=== PATIENT | female | born 1975 | race Caucasian/White ===

== ENCOUNTER → 2024-03-29 14:02 | Outpatient (REF) | payer BC, SELFPAY | LOC: RAD 14:02 | PROVIDERS: ATTENDING PHYSICIAN Family Medicine | DX: N20.0 Calculus of kidney (principal) | CPT/HCPCS: 76770 ==

== ENCOUNTER 2024-04-04 10:40 | Emergency (ER) | payer BC, SELFPAY ==
[2024-04-04 10:44] VITALS: BP 135/66
[2024-04-04 11:16] LABS: % Basophils 0.6 % (0-2); % Eosinophils 0.2 % (0-6); % Immature Granulocytes 0.1 % (0-0.5); % Lymphocytes 12.3 % (20.5-51.1); % Monocytes 5.2 % (1.7-9.3); % Neutrophils 81.6 % (42.2-75.2); Absolute Basophils 0.1 10^3/uL (0-0.2); Absolute Lymphocytes 1.1 10^3/uL (1.2-3.4); Absolute Monocytes 0.5 10^3/uL (0.1-0.6); Absolute Neutrophils 7.1 10^3/uL (1.4-6.5); Hematocrit 39.5 % (37.0-47.0); Hemoglobin 13.7 g/dL (12.0-16.0); Mean Corp Hgb Conc. 34.7 g/dL (33.0-37.0); Mean Corpuscular Volume 92.3 fL (81.0-99.0); Mean Platelet Volume 10.5 fL (7.4-10.4); Nucleated Red Blood Cells % 0 %; Platelet Count 252 10^3/uL (130-400); Red Blood Cell Count 4.28 10^6/uL (4.20-5.40); Red Cell Dist. Width 12.9 % (11.5-14.5); White Blood Cell Count 8.7 10^3/uL (4.8-10.8)
[2024-04-04 11:28] LABS: INR 1.08
[2024-04-04 11:29] LABS: APTT 31.3 Sec (23.4-35.0)
[2024-04-04 11:31] LABS: HCG, Serum Qualitative Screen Negative
[2024-04-04 11:33] LABS: ALT (SGPT) 19 U/L (0-35); AST (SGOT) 31 U/L (14-36); Albumin 4.6 g/dl (3.5-5.0); Alkaline Phosphatase 56 U/L (38-126); Blood Urea Nitrogen 18 mg/dl (7-17); Calcium 9.6 mg/dl (8.4-10.2); Carbon Dioxide 23 mmol/L (22-30); Chloride 102 mmol/L (98-107); Glucose 93 mg/dl (70-99); Potassium 4.5 mmol/L (3.5-5.1); Sodium 137 mmol/L (135-145); Total Bilirubin 0.9 mg/dl (0.2-1.3); Total Protein 6.7 g/dl (6.3-8.2); eGFR > 60.00
[2024-04-04] MEDS: OMNIPAQUE 50 ML PO (12:18)
[2024-04-04] MEDS: NSS 1000 IV (12:18)
[2024-04-04 12:22] VITALS: BMI 20.8
[2024-04-04 12:52] LABS: Lactic Acid 0.9 mmol/L (0.7-2.0)
[2024-04-04 12:55] LABS: Lipase 189 U/L (23-300)
[2024-04-04 13:09] LABS: Urine Albumin Negative (Neg - Trace); Urine Bilirubin Negative (Negative); Urine Character Clear (Clear); Urine Color Yellow; Urine Glucose Negative (Negative); Urine Ketone 1+ (Negative); Urine Leukocyte Negative (Negative); Urine Nitrite Negative (Negative); Urine Occult Blood Negative (Negative); Urine Specific Gravity 1.005 (<1.030); Urine Urobilinogen Negative (Neg - 1+)
--- NOTE | 2024-04-04 13:30 | ED.GENMED ---
History of Present Illness
General
Chief Complaint: Rectal Bleeding
Source: patient
Exam Limitations: none
Time Seen by Provider: 04/04/24 11:36
Nursing documentation reviewed up to this point in time: agreed with
History of Present Illness
History of Present Illness:
48 y/o F with h/o colon polyps removed preiovusly on colonoscopys
renal stones no passing stones
here with paniless rectal bleeding x 1 episode today; no blood in toilet bowl
pt had brown stool mixed with blood, the stool was not diarrhea, but soft
she has never had rectal bleeding before
no rectal pain
no AC
no bleeding from anywerh else
she has also had 2 weeks of mid right sided back pain
atraumatic
no cough
worse with changing position
she has been concerned she has malginancy and now is very fearful
she had outpatient US of kidneys showing infrarenal stones but no hydro
Past History
Past History
ED Past Medical History: Other (Hiatal Hernia)
ED Past Surgical History: Other (Lump in breast)
Social History
Living: with family
Phy Exam
Physical Exam
Physical Exam:
GENERAL: Alert , in no apparent distress
EYE: pupils equal and reactive
NECK: Supple
ENT: o/p clr, mmm.
CARDIAC: Regular rate and rhythm .
LUNGS: Clear breath sounds bilaterally, no acute respiratory distress, no wheezes/rales/rhonchi
back: nontender, no mdilne tenderness; no pleuritic pain
ABDOMEN: Soft, flat, nondistended, nontender, no r/g, no cvat, normal bowel sounds
NEUROLOGICAL: Alert and oriented, no focal neuro deficits
SKIN: Warm and dry, skin intact.
MUSCULOSKELETAL: No edema, well perfused.
PSYCH: Normal and appropriate interaction.
Course
Orders/Labs/Results
Orders:
Orders
04/04/24 10:50
Test Result ONCE
04/04/24 11:01
Type+Screen Urgent
Complete Blood Count/With Diff Urgent
Comprehensive Metabolic Panel Urgent
HCG, Serum Qualitative Screen Urgent
Lipase Urgent
Comment: ADD ON
PT/INR [Prothrombin Time] Urgent
PTT Urgent
04/04/24 12:10
CT Abd/pel W Iv And Oral Contr Urgent
Comment:
Reason For Exam: BACK PAIN, RECTAL BLEEDING, DIARRHEA
0.9% Sodium Chloride 1000 ml [Nss] 1,000 ml IV BOLUS
Diphenhydramine [Benadryl] 50 mg IV NOW STA
Hydrocortisone Sod Succinate [Solu-Cortef] 200 mg IV NOW STA
Iohexol [Omnipaque] See Protocol PO NOW STA
04/04/24 12:11
Add On- LAB Urgent
Tests Added?: LIPASE
CR Chest - 2 Views Urgent
Comment:
Reason For Exam: UPPER BACK PAIN
04/04/24 12:22
Lactic Acid Urgent
04/04/24 12:55
Urinalysis Reflex To Culture Urgent
Date Specimen was Collected: 04/04/24
Time Specimen was Collected: 12:46
Abnormal Lab Results
04/04/24 04/04/24
11:01 12:55
MCH 32.0 H pg
(27.0-31.0)
MPV 10.5 H fL
(7.4-10.4)
Absolute Neuts (auto) 7.1 H 10^3/uL
(1.4-6.5)
Absolute Lymphs (auto) 1.1 L 10^3/uL
(1.2-3.4)
Neutrophils % 81.6 H %
(42.2-75.2)
Lymphocytes % 12.3 L %
(20.5-51.1)
BUN 18 H mg/dl
(7-17)
Urine Ketones 1+ A
(Negative)
04/04/24 11:01
04/04/24 11:01
Vital Signs
Initial and Last Documented VS:
Initial Vital Signs
Temp Pulse Resp BP Pulse Ox
97.8 F 66 18 135/66 100
04/04/24 10:44 04/04/24 10:44 04/04/24 10:44 04/04/24 10:44 04/04/24 10:44
Last Documented Vital Signs
Temp Pulse Resp BP Pulse Ox
97.8 F 59 13 93/56 100
04/04/24 10:44 04/04/24 12:32 04/04/24 12:32 04/04/24 15:51 04/04/24 10:44
MDM/Problems Addressed
MDM/Problems Addressed:
48 y/o F with h/o colon polyps on previous colonoscopy 2018, due for another
here with painless rectal bleeding x 1 episode today mixed with brown stool; not anticoagulated; no bleeding actively; had w/u here with labs, ctap, which only showed mild dehydration, hg stable.
she has been havin ga MSK-sounding right sided mid back pain for 2 weeks; but she is concerned about malignancy
hasn't had colonoscopy > 5 years
pt has no cough/sob, no pleuritic pain
pt has not had any episodes here
she was hydrated with IVF
she has no pain
i d/w dr. arevalo from [facility] the [facility] who got her an appt on 04/[address] arreaga
pt will try metamucil and suppositories in case of hemorrhoids
*Critical Care Note
Total Time (30-74mins, 75-104mins- exclusive of procedures): Not Applicable
ED Attending Note
-
Portions of this chart may have been created with voice recognition software.� Occasional wrong word or��sound alike� substitutions may have occurred due to the inherent limitations of voice recognition software.
Discharge Plan
Departure
Patient Disposition: Home (Routine Discharge)
Date of Disposition: 04/04/24
Time of Disposition: 15:22
Patient with high blood pressure during this ER visit?: No
Condition: Fair
Covid-19: Not Applicable
Discharge Problem:
Rectal bleed
Instructions: Bloody Stools, Adult (DC)
Prescriptions:
No Action
No Current Medications
0
Referrals:
Dixie Arevalo MD [Active] - Follow up in 1 week
Liliana Cain DO [Family Provider] -
Activity Restrictions/Additional Instructions:
WE ARE NOT SURE THE CAUSE OF YOUR BLOODY STOOL
YOU SHOULD TRY TO AVOID ROUPHAGE IN YOUR DIET
TRY MORE BLAND FOOD FOR A FEW DAYS
USE METAMUCIL ONCE A DAY TO KEEP STOOLS SOFT
USE A PREPARATION H SUPPOSITORY ONCE A DAY FOR THE NEXT 3 DAYS TO SEE IF THIS HELPS
RETURN FOR: RECURRENT EPISSODES, LARGER BLEEDING, BLEEDING SPOTANEOUSLY OR WITH CLOTS, SEVERE PAIN OR ANY CONCERNS,
OTHERWISE FOLLOW UP WITH GI.[facility]
Interventions
Interventions:
*Risk Screen - Suicide Last Done: 04/04/24 12:23
*General Assessment Last Done: 04/04/24 12:23
*Neglect/Abuse Screening Last Done: 04/04/24 12:23
ED- Fall Risk Assessment Last Done: 04/04/24 11:34
*ED COVID-19 Vaccine History Last Done: 04/04/24 12:23
*Nursing Disposition Last Done: 04/04/24 15:55
XB-Wgekgl-Mnlhugmfed Assessment Last Done: 04/04/24 11:34
ED- Cardiac Assessment Last Done: 04/04/24 12:34
ED- Pulmonary Assessment Last Done: 04/04/24 11:34
Discharge Date and Time
Discharge Date/Time: 04/04/24 16:05
Print Language: URDU
[2024-04-04] MEDS: SOLU-CORTEF 200 MG IV (13:36)
[2024-04-04] MEDS: BENADRYL 50 MG IV (13:37)
[2024-04-04 15:51] VITALS: BP 93/56
== END 2024-04-04 16:05 | disposition home or self-care (01) ==
LOC: EMR 10:40
PROVIDERS: Physician Assistant; Student in an Organized Health Care Education/Training Program; EMERGENCY PHYSICIAN Student in an Organized Health Care Education/Training Program; FAMILY PHYSICIAN Family Medicine
DX: K62.5 Hemorrhage of anus and rectum (principal); E86.0 Dehydration; M54.6 Pain in thoracic spine; K44.9 Diaphragmatic hernia without obstruction or gangrene; Z87.442 Personal history of urinary calculi; Z86.010 Personal history of colon polyps; Z88.8 Allergy status to other drugs, medicaments and biological substances; Z91.041 Radiographic dye allergy status
CPT/HCPCS: 99285; 96375; 96361; 96374; 71046; 74177; 80053; 81003; 83605; 83690; 84703; 85025; 85610; 85730; 86850; 86900; 86901; Q9967

== ENCOUNTER → 2024-05-13 06:30 | Day surgery (SDC) | payer OTHER, SELFPAY | LOC: GI 06:30 | PROVIDERS: ATTENDING PHYSICIAN Internal Medicine Gastroenterology | DX: Z12.11 Encounter for screening for malignant neoplasm of colon (principal); K62.5 Hemorrhage of anus and rectum; K64.8 Other hemorrhoids; K63.89 Other specified diseases of intestine; D12.3 Benign neoplasm of transverse colon; Z86.0101 Personal history of adenomatous and serrated colon polyps | CPT/HCPCS: 45385; 45380; 88305 ==

== ENCOUNTER → 2024-07-23 13:19 | Outpatient (REF) | payer OTHER, SELFPAY | LOC: WDC 13:19 | PROVIDERS: ATTENDING PHYSICIAN Obstetrics & Gynecology; FAMILY PHYSICIAN Family Medicine | DX: Z12.31 Encounter for screening mammogram for malignant neoplasm of breast (principal) | CPT/HCPCS: 77063; 77067 ==